=== PATIENT | male | born 1970 | race Caucasian/White ===

== ENCOUNTER 2025-01-01 09:40 | Emergency (ER) | payer MEDICAID, SELFPAY ==
--- NOTE | ~2025-01-01 | XR_ITS ---
Examination: XR knee RT 3V Clinical History: gout Comparison: None Technique: 3 views right knee Findings/impression: 1. Suprapatellar joint effusion. 2. No fracture or dislocation. 3. No degenerative or erosive changes. Reviewed, dictated and finalized at location R.
[2025-01-01 09:46] VITALS: BP 169/87; PULSE 104; RESP 20; TEMP 36.4; O2SAT 100
--- NOTE | 2025-01-01 10:14 | ED.EXTPRO ---
HPI - Extremity Problem General Chief complaint: Extremity Problem,Nontraumatic Stated complaint: R knee pain Time Seen by Provider: 01/01/25 10:01 History of Present Illness HPI Narrative: 54-year-old male with history of gout presenting to the emergency depart with right knee pain and swelling for last 3 weeks. Patient states he gets gout flares in various joints including his right wrist and left great toe and for last 3 weeks has noticed pain in his right knee with some progressive pain and swelling. No traumatic injury. No fever chills. No recent health concerns. Has previously been on prednisone but no colchicine or allopurinol. Has not seen a specialist but states he was trying to see a puppy walker for this. Was otherwise in his normal state of health. Related Data Allergies Allergy/AdvReac Type Severity Reaction Status Date / Time No Known Allergies Allergy Verified 01/01/25 09:48 Review of Systems Review of Systems: As reviewed above in HPI Exam Narrative: GENERAL: [Well-appearing, well-nourished, and in no acute distress.] HEAD: [Normocephalic, atraumatic.] EYES: [PERRLA and EOMI.] ENT: Nares clear, no rhinorrhea or epistaxis. Mucous membranes moist. NECK: Supple. CHEST: [Clear to auscultation. No respiratory distress.] HEART: [Regular rate and rhythm]. No murmur heard. [Normal peripheral pulses.] ABDOMEN: [Soft, nondistended], [nontender], [No rigidity or guarding] EXTREMITIES: Joint effusion on the right knee, pain with tenderness to palpation over the medial joint line but no laxity or tenderness with valgus or varus stress testing. No patellar tenderness. No lateral joint line tenderness or obvious deformity. Not warm or erythematous, no skin breakdown or blistering. Range of motion with flexion and extension limited secondary to pain. Intact extensor mechanism, plantar and ankle dorsiflexion intact. Hip flexion and extension intact. SKIN: Warm, dry, no rash. NEURO: [No focal deficits]. Alert and oriented [x3.] PSYCH: [Normal mood and affect.] Course Vital Signs Vital signs: Vital Signs Temperature 36.4 C 01/01/25 09:46 Pulse Rate 104 H 01/01/25 09:46 Respiratory Rate 20 01/01/25 09:46 Blood Pressure 169/87 H 01/01/25 09:46 Pulse Oximetry 100 01/01/25 09:46 Temperature 36.4 C 01/01/25 09:46 Pulse Rate 104 H 01/01/25 09:46 Respiratory Rate 20 01/01/25 09:46 Blood Pressure 169/87 H 01/01/25 09:46 Pulse Oximetry 100 01/01/25 09:46 Procedures Joint Aspiration/Injection Joint Asp./Inject. 1: Joint Aspiration Date: 01/01/25 Joint Aspiration Time: 11:31 Time Out Performed: Yes Side of body: right Joint Aspirated: knee Ultrasound Guidance: Yes Skin Prep: Povidone-Iodine1% Local Anesthetic: lidocaine 1% Amount of anesthesia used (mL): 3 Needle Size Used: Other (21G) Fluid Obtained: viscous (Yellow with some mixed bloody component, no purulence) Total fluid obtained (mL): 7 Patient Tolerated Procedure: well and no complications Complications: none Additional Comments: Very thick viscous material withdrawn under ultrasound guidance, thick semi transplant with some blood, no obvious purulence, patient tolerated procedure well, bandage applied over top MDM - Extremity (Nontraumatic) MDM Narrative Medical decision making narrative: 54-year-old male with history of gout presenting to the emergency depart with right knee pain and swelling for last 3 weeks. Patient states he gets gout flares in various joints including his right wrist and left great toe and for last 3 weeks has noticed pain in his right knee with some progressive pain and swelling. No traumatic injury. No fever chills. No recent health concerns. Has previously been on prednisone but no colchicine or allopurinol. Has not seen a specialist but states he was trying to see a puppy walker for this. Was otherwise in his normal state of health. Joint effusion on the right knee, pain with tenderness to palpation over the medial joint line but no laxity or tenderness with valgus or varus stress testing. No patellar tenderness. No lateral joint line tenderness or obvious deformity. Not warm or erythematous, no skin breakdown or blistering. Range of motion with flexion and extension limited secondary to pain. Intact extensor mechanism, plantar and ankle dorsiflexion intact. Hip flexion and extension intact. Patient is afebrile. Mildly tachycardic likely secondary to pain. Given his history of gout most likely arthropathy flare versus occult injury and less likely fracture. Afebrile without any redness or erythema and no red flag signs concerning for septic arthritis at this time. Patient given prednisone and indomethacin, x-ray obtained. Bedside ultrasound confirms large joint effusion. Patient consented to knee arthrocentesis. Sterile technique used with successful aspiration of 7 cc of very thick semi transplant fluid with some blood. Ultrasound showed diminishment in the effusion but still very thick synovium evident. Synovial fluid testing sent. Laboratory studies sent including lactic acid. No leukocytosis. Negative lactic acid. Electrolytes unremarkable. Normal creatinine. Normal glucose. Normal LFTs. Negative uric acid. Arthrocentesis studies show approximately 50,000 synovial nucleated cells 76% neutrophilia and turbid fluid collection with some blood. No crystals seen. Patient did feel better after the medications given here and was having better range of motion. Spoke to the orthopedic doctor Dr. Burleson who recommended empirically covering him with antibiotics and will see him in clinic tomorrow morning with low suspicion septic arthritis more likely pseudogout nature. Patient made aware of the plan and sent home with Ancef per orthopedic recommendations and clinic appointment tomorrow. Patient's questions were answered he was given strict return precautions. Lab Data 01/01/25 12:52 01/01/25 12:52 Labs: Lab Results 01/01/25 01/01/25 Range/Units 11:29 12:52 WBC 9.6 (4.5-10.0) K/mm3 RBC 4.46 L (4.6-6.20) M/mm3 Hgb 12.7 L (14.0-18.0) g/dL Hct 39.5 L (42.0-52.0) % MCV 88.6 (80-100) fl MCH 28.5 (26-34) pg MCHC 32.2 (32-36) g/dl RDW 12.6 (11.5-14.5) % Plt Count 534 H (150-375) k/mm3 MPV 9.5 (7.4-10.4) fl Immature Gran % (Auto) 0.4 (0-0.5) % Neut % (Auto) 92.3 H (45.5-73.1) % Lymph % (Auto) 4.3 L (18.3-44.2) % [place] % (Auto) 2.3 L (2.6-8.5) % Eos % (Auto) 0.3 (0-4.4) % Baso % (Auto) 0.4 (0.2-1.2) % Lymph # (Auto) 0.41 L (0.9-3.2) K/mm3 [place] # (Auto) 0.2 (0.1-0.6) K/mm3 Eos # (Auto) 0.0 (0-0.3) K/mm3 Baso # (Auto) 0.0 (0.0-0.1) K/mm3 Abs Immat Gran (auto) 0.04 H (0.00-0.031) K/mm3 Absolute Neuts (auto) 8.8 H (1.3-6.7) K/mm3 Absolute Nucleated RBC 0.000 (0.0-0.012) K/mm3 Nucleated RBC % 0.0 (0.0-0.2) % ESR 114 H (0-20) mm/hr PT 14.7 (11.1-14.7) Seconds INR 1.1 APTT 33.8 (22.3-36.8) Seconds Sodium 135 L (137-145) mmol/L Potassium 4.4 (3.4-5.0) mmol/L Chloride 98 (98-107) mmol/L Carbon Dioxide 29 (22-30) mmol/L Anion Gap 8 (4-12) mmol/L BUN 15 (9-20) mg/dL Creatinine 0.93 (0.7-1.3) mg/dL Estim Creat Clear Calc 83 ml/min Estimated GFR > 60 (59 - ) Glucose 124 H (65-110) mg/dL Lactic Acid 0.9 (0.7-2.0) mmol/L Uric Acid 4.4 (3.5-8.5) mg/dL Calcium 9.1 (8.4-10.2) mg/dL Total Bilirubin 0.4 (0.2-1.3) mg/dL AST 30 (17-59) U/L ALT 23 (6-50) U/L Alkaline Phosphatase 113 (38-126) U/L C-Reactive Protein 22.0 H (<1.0) mg/dL Total Protein 7.6 (6.3-8.2) g/dL Albumin 3.7 (3.5-5.1) g/dL Fluid Glucose Pending Fluid Total Protein Pending Synovial Source Rt knee syn fluid Synovial Color Yellow (Colorless) Synovial Appearance Turbid A (Clear) Synovial RBC 7000 H (0-0) /uL Synovial Nuc Cells 17387 H (0-200) /uL Synovial Neutrophils 76 H (0-25) % Synovial Lymphocytes 3 % Synovial Monocytes 3 % Synovial Other Cells 18 % Synovial Crystals None seen (None Seen) Synovial Glucose Cancelled Synovial Total Protein Cancelled Discharge Plan Discharge Clinical Impression: Acute knee pain, Inflammatory arthropathy Patient Disposition: Home Condition: Stable Instructions: Antibiotic Form, Knee Pain (ED), Swollen Joint (ED) Additional Instructions: Contact the orthopedic surgeon for appointment tomorrow morning. We have sent the fluid samples from your knee joint for analysis and they will follow-up with results. The surgeon recommended start you on antibiotics in case this is an infectious process and you already received a steroid here which is long-acting. Return with any emergent concerns, developing fevers, worsening pain, stiffness in the joint or any other issues otherwise follow-up with orthopedics tomorrow. Patient Language: Citizen Of [place] Prescriptions: New cephalexin 500 mg capsule 500 mg PO Q6H 7 Days Qty: 28 0RF Follow-up/Referrals: PHYSICIAN NOT ON STAFF,NONSTAFF [Primary Care Provider] Nghia Burleson MD [Physician, Orthopedics] - 1 Day Referral Note: Knee pain, synovial fluid analysis results Time of Disposition: 13:44
[2025-01-01] MEDS: dexAMETHasone SOD PHOS INJ 10 MG/ML 1 ML VIAL IM (10:21)
[2025-01-01] MEDS: INDOMETHACIN 25 MG CAPSULE 50 MG PO (10:21)
[2025-01-01 12:16] LABS: Color Synovial Fluid Yellow (Colorless); Lymphocytes Synovial Fluid 3 %; Monocytes Synovial Fluid 3 %; Neutrophils Synovial Fluid 76 % (0-25); Nucleated Cell Synovial Fluid 49805 /uL (0-200); Other Cells Synovial Fluid 18 %; RBC Synovial Fluid 7000 /uL (0-0); Source Synovial Fluid Rt Knee Syn Fluid
[2025-01-01 13:00] LABS: Hematocrit 39.5 % (42.0-52.0); Hemoglobin 12.7 g/dL (14.0-18.0); Immature Granulocyte Percent A 0.4 % (0-0.5); Lymphocytes Absolute Auto 0.41 K/mm3 (0.9-3.2); Mean Corpuscular HGB Conc 32.2 g/dl (32-36); Mean Corpuscular Hemoglobin 28.5 pg (26-34); Mean Corpuscular Volume 88.6 fl (80-100); Nucleated Red Blood Cells Absolute Auto 0.000 K/mm3 (0.0-0.012); Nucleated Red Blood Cells Perc 0.0 % (0.0-0.2); Platelet Count Result 534 k/mm3 (150-375); Red Blood Count 4.46 M/mm3 (4.6-6.20); White Blood Count 9.6 K/mm3 (4.5-10.0)
[2025-01-01 13:11] LABS: Alanine Aminotransferase 23 U/L (6-50); Albumin Level 3.7 g/dL (3.5-5.1); Alkaline Phosphatase 113 U/L (38-126); Anion Gap 8 mmol/L (4-12); Aspartate Amino Transferase 30 U/L (17-59); Bilirubin,Total 0.4 mg/dL (0.2-1.3); Blood Urea Nitrogen 15 mg/dL (9-20); Calcium 9.1 mg/dL (8.4-10.2); Carbon Dioxide 29 mmol/L (22-30); Chloride 98 mmol/L (98-107); Estimated CRCL calculation 83 ml/min; Estimated Glomerular Filt Rate > 60; Glucose 124 mg/dL (65-110); Potassium 4.4 mmol/L (3.4-5.0); Sodium 135 mmol/L (137-145); Total Protein 7.6 g/dL (6.3-8.2)
[2025-01-01 13:12] LABS: INR 1.1; Prothrombin Time 14.7 Seconds (11.1-14.7)
[2025-01-01 13:13] LABS: Partial Thromboplastin Time 33.8 Seconds (22.3-36.8)
[2025-01-01 13:14] LABS: Uric Acid 4.4 mg/dL (3.5-8.5)
[2025-01-01] MEDS: WATER, STERILE FOR INJECTION 10 ML VIAL XX (13:21)
[2025-01-01 13:31] LABS: CRP 22.0 mg/dL (<1.0)
[2025-01-01 14:12] VITALS: BP 128/86; PULSE 95; RESP 20; O2SAT 98
[2025-01-03 16:08] LABS: Glucose, Body Fluid <2 mg/dL (.)
== END 2025-01-01 14:14 | disposition home or self-care (01) ==
PROVIDERS: Emergency Provider Student in an Organized Health Care Education/Training Program
DX: M25.561 Pain in right knee (principal); M12.861 Other specific arthropathies, not elsewhere classified, right knee
CPT/HCPCS: 20610; 36415; 73562; 80053; 82945; 83605; 84157; 84550; 85025; 85610; 85652; 85730; 86140; 89051; 89060; 96372; 99284; A9270; J0690; J1100; J2003